=== PATIENT | male | born 1985 | race Caucasian/White ===

== ENCOUNTER 2017-07-20 13:11 | Emergency (ER) | payer BC, OTHER ==
[2017-07-20 13:26] VITALS: BP 156/85
--- NOTE | 2017-07-20 13:41 | EDM.PDOC ---
ED HPI GENERAL MEDICAL PROBLEM - General Chief Complaint: Upper Extremity Injury/Pain Stated Complaint: LEFT SHOULDER PAIN Time Seen by Provider: 07/20/17 13:29 Source of Information: Reports: Patient History Limitations: Reports: No Limitations - History of Present Illness INITIAL COMMENTS - FREE TEXT/NARRATIVE: Patient is a 32 year old male who presents to the E.D. complaining of left sided shoulder pain. States pain started a few months ago and has been on/off since. As of recent pain has gradually increased. Pain initially started with lifting weights (dumbbell flys with overhead). 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 As of the past two weeks he has not been lifting at all 2nd to pain. Takes ibuprofen intermittently for pain with no ice used. He has no prior injury to the affected shoulder. Denies sleeping on the affected side. Pain is a 5/10 currently. Denies any n/t, weakness, swelling, recent trauma, or any additional complaints. Left Shoulder Pain Score (Numeric/FACES): 7 - Related Data Allergies Allergy/AdvReac Type Severity Reaction Status Date / Time No Known Allergies Allergy Verified 07/20/17 13:37 Home Meds: Home Meds . [No Known Home Meds] 07/20/17 [History] Past Medical History Musculoskeletal History: Reports: Fracture Social & Family History - Family History Family Medical History: Noncontributory - Tobacco Use Smoking Status *Q: Never Smoker - Caffeine Use Caffeine Use: Reports: Coffee - Recreational Drug Use Recreational Drug Use: No Review of Systems - Review of Systems Review Of Systems: ROS reveals no pertinent complaints other than HPI. ED EXAM, GENERAL - Physical Exam Exam: See Below Exam Limited By: No Limitations General Appearance: Alert, WD/WN, No Apparent Distress Ears: Hearing Grossly Normal Nose: Normal Inspection Throat/Mouth: Normal Voice, No Airway Compromise Neck: Normal Inspection, Supple Respiratory/Chest: No Respiratory Distress, Lungs Clear, Normal Breath Sounds, No Accessory Muscle Use, Chest Non-Tender Cardiovascular: Normal Peripheral Pulses, Regular Rate, Rhythm Peripheral Pulses: 2+: Radial (L) Back Exam: Normal Inspection. No: Paraspinal Tenderness, Vertebral Tenderness Extremities: Normal Inspection, Normal Range of Motion, Normal Capillary Refill , Other (Tenderness noted to the left biceptal groove and A/C joint with palpation. Full AROM/PROM noted. Provocative testing negative: drop arm, empty the can, peña. No assymetry noted. NO decrease in strength noted. ) Neurological: Alert, Oriented, CN II-XII Intact Psychiatric: Normal Affect, Normal Mood Skin Exam: Warm, Dry, Intact, Normal Color Course - Vital Signs Last Recorded V/S: Last Vital Signs Temp 98.5 F 07/20/17 13:20 Pulse 89 07/20/17 13:20 Resp 18 07/20/17 13:20 BP 156/85 H 07/20/17 13:20 Pulse Ox 98 07/20/17 13:20 - Re-Assessments/Exams Free Text/Narrative Re-Assessment/Exam: NO testing required. Patient has bicepital tendonitis. Discharge instructions as documented. Departure - Departure Time of Disposition: 13:36 Disposition: Home, Self-Care 01 Condition: Good Clinical Impression: Tendonitis of shoulder, left Biceps tendinitis Qualifiers: Laterality: left Qualified Code(s): M75.22 - Bicipital tendinitis, left shoulder - Discharge Information Instructions: Shoulder Pain, [id number] Referrals: PCP,None [Primary Care Provider] - Bran Rojas MD [Physician] - Forms: ED Department Discharge, ED Return to Work/School Form Additional Instructions: As discussed I believe most of your symptoms if not all are related to tendonitis. This is a overuse injury. Thus treatment is symptomatic are including: ibuprofen 600mg every 6 hours and tylenol 650mg every 6 hrs in alternating fashion with food and plenty of water. Ice to the affected area 6 times daily, 30 minutes in duration, do not apply ice directly on the skin. Refrain from any activities that cause worsening pain (weightlifting). Followup with Orthopedic surgeon in the next 10 to 14 days for evaluation. Return to the E.D. as needed for any new or worsening pain.
== END 2017-07-20 13:45 | disposition home or self-care (01) ==
LOC: JD.ED 13:11
DX: M75.22 Bicipital tendinitis, left shoulder (principal)
CPT/HCPCS: 99282; 99283